=== PATIENT | male | born 1960 | race Caucasian/White ===

== ENCOUNTER → 2016-04-21 | Outpatient (CLI) | payer OTHER ==
--- NOTE | 2016-04-21 15:27 | DX ---
Right calcaneus, 2 views History: Right heel pain injury in June 2015. Findings: Right calcaneus demonstrates no evidence of fracture or destructive osseous lesions. Dorsal Achilles tendon insertion osteophyte noted. No plantar osteophyte. Mild osteoarthritis dorsal talonavicular joint with small osteophytes. Impression: 1. No evidence of the calcaneus fracture. 2. Mild osteoarthritis dorsal talonavicular joint. 3. Consider MRI imaging if symptoms persist.
== END ==
LOC: BMCIMAGING 13:55
PROVIDERS: ATTEND Internal Medicine
DX: M79.671 Pain in right foot (principal); M25.771 Osteophyte, right ankle